=== PATIENT | female | born 1930 | race Caucasian/White ===

== ENCOUNTER 2020-04-05 08:50 | Inpatient (IN) | payer OTHER ==
[~2020-04-05] VITALS: Ht 172.7 cm; Wt 73.9 kg
[2020-04-05 08:50] VITALS: BP 172/84
[~2020-04-05 08:50] MED LIST: ARTIFICIAL TEA1 EACH OPHTHALMIC; ASPIR 8181 M1 PO; ASPIRIN81 M2 PO; ATENOLOL 100MG100 MG PO; AUGMENTIN 875875 MG PO; CELEXA20 MG PO; DILTIAZEM 24HR120 M2 PO; ENOXAPARIN40 MG/0.1 SUBQ; FLAGYL500 MG PO; HYDROCODONE-AP1 EAC6 PO; IBUPROFEN 400400 M2 PO; KEFLEX500 MG PO; LASIX 40 MG TAB40 MG PO; LEVOTHYROXIN0.088 MG PO; LEVOTHYROXIN0.125 M1 PO; LOPRESSOR 50 MG50 M1 PO; MAG-OXIDE400 MG PO; MAGOX 400400 MG PO; NORCO 5-325 TA1 EACH PO; POTASSIUM20 PO; TEARS NATURALE1 EACH OPHTHALMIC; TENORMIN50 MG PO
[2020-04-05 10:49] LABS: HEMATOCRIT 37.9 % (37.0-47.0); HEMOGLOBIN 12.3 gm/dL (12.0-15.0); MCH 32.6 pg (26.0-34.0); MCHC 32.5 g/dL (28.0-37.0); MCV 100.5 fL (80.0-100.0); RBC 3.77 mil/uL (4.20-5.00); RDW 14.1 % (10.5-14.5); WBC 11.5 thou/uL (4.0-11.0)
[2020-04-05 11:03] LABS: CALCIUM 9.3 mg/dL (8.5-10.1); CREATININE 0.7 mg/dL (0.6-1.0); POTASSIUM 3.6 mmol/L (3.5-5.1)
--- NOTE | 2020-04-05 11:39 | EKG ---
[facility] [place] [address] ELECTROCARDIOGRAM REPORT Name: SHE DENT Room #: REG [facility]#: [id number] Admission: 04/05/20 Attend Phys: Discharge: Date of : [birth year] Report #: [id number] THIS REPORT FOR: cc: J Carlos Jones MD, Mark A. 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
[2020-04-05 15:15] VITALS: BP 159/74
[2020-04-05 16:08] VITALS: BP 146/63
[2020-04-05 17:00] VITALS: BP 144/62
--- NOTE | 2020-04-05 19:18 | NUR ---
Pt came to unit from ED. Pt c/o left hip pain. Provider notified. New order noted. Sevilla catheter in place. Admission completed. Hospitalist paged. Ortho consulted. Colostomy bag in place. Call light within reach. Fall precautions in place. Will continue to monitor.
[2020-04-05 20:10] VITALS: BP 132/72
[2020-04-06] VITALS (12 sets, daily range): BP systolic 140–172; BP diastolic 54–89
--- NOTE | 2020-04-06 04:41 | NUR ---
PATIENT ALERT AND ORIENTED X4. MEDICATED FOR PAIN X3. REMAINS ON BEDREST. JAVIER TO D/D WITH BRENDEN URINE. PATIENT HAS BEEN NPO SINCE 04/05/20 AT 2359 FOR SURGERY IN THE AM. COVID TEST SENT TO LAB DURING THE AM. THIS NURSE PUT ORDER IN PER MILL LABOR SUPERVISOR (ABIGAIL). 02 SAT AT BEGINNING OF SHIFT 89%, PUT ON 2LNC WITH GOOD RESULTS. RESTING QUIETLY. WILL MONITOR.
--- NOTE | 2020-04-06 10:30 | NUR ---
discussed during prime time, possible will be going to surgery for fx, pt wish to go to 5n. education with bedside nurse that will need pt/ot eval and 5n consult ordered.
[2020-04-06 11:09] LABS: TSH 2.298 uIU/mL (0.358-3.740)
--- NOTE | 2020-04-06 12:29 | NUR ---
Assumed care of pt at 0700. Pt c/o left hip pain. Surgery scheduled for this am. Sevilla catheter in place. Talked to pt's brother and updated on pt's status.
[2020-04-06 12:46] LABS: HEMATOCRIT 36.3 % (37.0-47.0); HEMOGLOBIN 11.8 gm/dL (12.0-15.0); MCH 33.2 pg (26.0-34.0); MCHC 32.6 g/dL (28.0-37.0); MCV 101.9 fL (80.0-100.0); RBC 3.56 mil/uL (4.20-5.00); RDW 14.4 % (10.5-14.5); WBC 11.1 thou/uL (4.0-11.0)
[2020-04-07 00:31] VITALS: BP 136/46
--- NOTE | 2020-04-07 02:39 | NUR ---
PATIENT ALERT AND ORIENTED X4. MEDICATED FOR LEFT HIP PAIN DUE TO SURGERY. IVF INFUSING W/O COMPLICATION WELL IV ABX. DRESSING TO HIP IS DRY AND INTACT. HEMOVAC DRAIN IS MONITORED. WILL BEGIN WORK WITH PT TODAY. RESTING QUIETLY. WILL MONITOR.
[2020-04-07 06:34] LABS: HEMATOCRIT 29.8 % (37.0-47.0); MCH 34.1 pg (26.0-34.0); MCHC 33.6 g/dL (28.0-37.0); MCV 101.5 fL (80.0-100.0); RBC 2.94 mil/uL (4.20-5.00); RDW 14.1 % (10.5-14.5); WBC 8.6 thou/uL (4.0-11.0)
[2020-04-07 07:20] VITALS: BP 132/59
--- NOTE | 2020-04-07 11:19 | NUR ---
Assumed care of pt at 0700. Pt alert but forgetful at times. Dressing intact. Colostomy in place. Hemovac drain in place. Pain controlled with prn pain meds. 3L O2. Talked to pt's brother and updated on pt's status. Call light within reach. Fall precautions in place. Will continue to monitor.
[2020-04-07 15:40] VITALS: BP 121/66
[2020-04-07 19:55] VITALS: BP 126/70
[2020-04-07 20:30] VITALS: BP 140/68
[2020-04-08 03:10] VITALS: BP 114/75
--- NOTE | 2020-04-08 05:00 | NUR ---
PATIENT ALERT AND ORIENTED X4. RESTING QUIETLY AT BEGINNING OF SHIFT. PATIENT HAS REFUSED PAIN MEDICATION THROUGHOUT THE NIGHT. JAVIER TO D/D WITH BRENDEN URINE. 02NC 2-3L. DRESSING DRY AND INTACT. WILL MONITOR.
[2020-04-08 06:07] LABS: HEMATOCRIT 27.6 % (37.0-47.0); HEMOGLOBIN 9.3 gm/dL (12.0-15.0); MCH 33.9 pg (26.0-34.0); MCHC 33.7 g/dL (28.0-37.0); MCV 100.7 fL (80.0-100.0); RBC 2.74 mil/uL (4.20-5.00); RDW 13.9 % (10.5-14.5); WBC 7.6 thou/uL (4.0-11.0)
--- NOTE | 2020-04-08 06:32 | HC ---
[facility] [place] [address] CONSULTATION Name: SHE DENT Room #: 434-P ADM IN M.R.#: [id number] Admission: 04/05/20 Attend Phys: Sid Contreras, Discharge: Date of : [birth year] Report #: [id number] THIS REPORT FOR: cc: J Carlos Jones MD, Mark A. MD Deardorff, Valerie A. MD ~ CC: Sid Jones DATE OF SERVICE: 04/05/2020 REASON FOR CONSULTATION: Left hip fracture. HISTORY OF PRESENT ILLNESS: The patient is an 89-year-old female who lives at home [place]. She reports she fell. Denied loss of consciousness, was brought in via EMS and diagnosed with a left hip fracture. She was subsequently admitted to the hospital. Denies any other musculoskeletal complaints. REVIEW OF SYSTEMS: MUSCULOSKELETAL: See HPI. NEUROLOGIC: Denies numbness or tingling. PAST MEDICAL HISTORY: Significant for atrial fibrillation, cardiomyopathy, hemicolectomy with colostomy with postoperative respiratory failure, and hypothyroidism. PAST SURGICAL HISTORY: Hysterectomy and colon resection. ALLERGIES: CEPHALEXIN. SOCIAL HISTORY: Uses a cane when she is out and about. Otherwise, she lives on a farm with her brother. Alcohol and smoking status is unknown. LABORATORY DATA: Laboratory studies done on 04/05/2020 show white blood cell count 11.5, hemoglobin 12.3, hematocrit 37.9, and platelet count 148. Chemistry is grossly normal. PHYSICAL EXAMINATION: GENERAL: The patient is alert, oriented, and intractable. She is well-developed, well-nourished female with normal affect. She interacts appropriately, speaks well. VITAL SIGNS: Most recent vital signs show a temperature of 36.6, heart rate 94, respiratory rate 18, blood pressure 144/62, and pulse oximetry 97% on room air. EXTREMITIES: Examination of her bilateral upper extremities, the skin is clean, dry and intact. She has grossly normal motor strength and stability and [facility] [address] [place] [address] CONSULTATION Name: JAILENESHE CESAR Room #: [address] [place] [address] IN M.R.#: [id number] Admission: 04/05/20 Attend Phys: Sid Contreras, Discharge: Date of : [birth year] Report #: [id number] sensation. She moves both upper extremities without pain in a functional range. There is no tenderness to palpation throughout the bilateral upper extremities. Bilateral lower extremity exam, her left hip is externally rotated and somewhat shortened. She has 2+ dorsalis pedis pulses in for both lower extremities. The skin is clean, dry and intact. She wiggles her toes. No tenderness to palpation to the bilateral knees, legs, ankles, or feet. Significant pain with attempted range of motion of left hip, none with the right. RADIOGRAPHS: AP pelvis and AP lateral of the left hip show some mild degenerative changes and a displaced subcapital femoral neck fracture. IMPRESSION AND PLAN: Left subcapital femoral neck fracture in an 89-year-old female who recommended operative fixation. We discussed hemiarthroplasty. The risks, benefits, alternatives and complications were discussed including but not limited to decrease in ambulatory level, blood clots, infection, damage to vessels or nerves, hardware problems, dislocation, leg length inequality. She will discuss with her brother hopefully plan to perform surgery tomorrow morning if she is medically optimized. Thank you very much for allowing me to participate in the care of this patient. <ELECTRONICALLY SIGNED> By: Alisa Danielson MD 04/08/20 0632 09 2229 Alisa Danielson MD /nt
--- NOTE | 2020-04-08 07:20 | O ---
[facility] [place] [address] OPERATIVE REPORT Name: SHE DENT Room #: 434-P ADM IN M.R.#: [id number] Admission: 04/05/20 Attend Phys: Sid Contreras, Discharge: Date of : [birth year] Report #: [id number] THIS REPORT FOR: cc: J Carlos Jones MD, Mark A. MD Clymer, David J. MD ~ CC: Sid Jones DATE OF SERVICE: 04/06/2020 PREOPERATIVE DIAGNOSIS: Left femoral neck fracture. POSTOPERATIVE DIAGNOSIS: Left femoral neck fracture. PROCEDURE: Left proximal femoral hemiarthroplasty. SURGEON: Jacob Vee M.D. LANDSCAPE TECHNICIAN SURGEON: Dr. Danielson. INDICATIONS: This frail, but still alert 89-year-old female, lives independently with her . She fell injuring the left hip. X-rays confirmed a displaced and unstable femoral neck fracture. I have discussed with them the nature of the injury and treatment options and we elected to go ahead with a cemented proximal femoral hemiarthroplasty. DESCRIPTION OF PROCEDURE: The patient was taken to the operating room where she was placed under general anesthesia. Prophylactic intravenous antibiotics were administered. She was turned to the right lateral decubitus position. The left hip, thigh and leg were meticulously prepped and draped. A slightly curving posterior skin incision was made and carried through the fascia and the posterior aspect of the hip was visualized. The short external rotators were taken down and preserved and tagged. The femoral head was found to be fractured and unstable and was removed. It was measured at 47 mm in diameter. Femoral neck osteotomy was performed. The canal was prepared with reamers and broaches. The Browning and Nephew hip system was utilized. A cemented size 14 stem seemed to fit most appropriately. A trial reduction was performed and a 4 mm neck length using a 47 mm head size seemed to fit quite nicely. This resulted in satisfactory alignment, range of motion and stability. The trial components were removed. The acetabulum was further inspected and cleared of any debris. A cement restrictor was placed and the methyl methacrylate cement was mixed and injected into the canal. A Browning and Nephew size 14 cemented femoral component was then inserted, placing this in about 20 degrees of anteversion. It seated nicely and appeared to be secure. The 47 mm unipolar femoral head was selected using a +4 mm neck length. This was impacted onto the Vincent taper of the stem [address] [address] OPERATIVE REPORT Name: SHE DENT Room #: 434-P [facility] IN .R.#: [id number] Admission: 04/05/20 Attend Phys: Sid Contreras, Discharge: Date of : [birth year] Report #: [id number] and then the hip was reduced. Once again, alignment, range of motion, stability and leg length were assessed and felt to be satisfactory. The short external rotators were reattached using the #1 FiberWire sutures previously placed. A single Hemovac was left in the wound exiting through a separate stab incision. The fascia was closed with multiple #1 Vicryl sutures. The subcutaneous tissues were closed with 0 Monocryl. The skin was closed with skin danilo. A sterile dressing was applied. The patient was awakened and returned to the recovery room in good condition. <ELECTRONICALLY SIGNED> By: Jacob Vee MD 04/08/20 0720 1211 1232 Jacob Vee MD /nt
--- NOTE | 2020-04-08 09:28 | NUR ---
ASSESSMENT: CM REVIEWED CHART AND SPOKE WITH PATIENT. PT IS POST OP LEFT HIP HEMIARTHROPLASTY. PT REPORTS LIVING AT HOME WITH HER BROTHER IN A HOUSE. PT STATES ABOUT 5 STEPS WITH HANDRAIL TO ENTER. PT REPORTS ABOUT 12 STEPS WITH HANDRAILS TO HER BEDROOM. PT REPORTS NORMALLY SHE IS INDEPENDENT WITH ADLS AND AMBULATION. PT REPORTS SHE DOES HAVE A WALKER AT HOME. PT STATES SHE ALSO HAS GRAB BARS IN THE SHOWER AND A SHOWER CHAIR. PT STATES SHE HAS HAD HH IN THE PAST AND THINKS IT WAS [facility]. PT REPORTS SHE HAS NOT BEEN TO A SNF. PT/OT IS WORKING WITH PATIENT TO HER DETERMINE DISCHARGE NEEDS. CM WILL CONTINUE TO FOLLOW TO ASSIST NEEDED.
[2020-04-08 11:03] VITALS: BP 138/66
--- NOTE | 2020-04-08 15:05 | NUR ---
ASSUMED PT AT 0715. PT IS A&OX4, VSS, INCONTINENT TO BOWEL AND BLADDER. PT HAS A JAVIER CATHETERM WITH BRENDEN COLOR URINE, AND A COLOSTOMY BAG. PT IS ON A REGULAR DIET. PT HAD A LEFT HIP REPLACEMENT, PT WORKED WITH THE PATIENT TODAY. PT HAS A LASHANDA DRESSING WITH NO DRAINAGE. FALL PRECAUTIONS IN PLACE, WILL CONTINUE TO MONITOR.
[2020-04-08 19:08] VITALS: BP 138/67
--- NOTE | 2020-04-08 20:44 | NUR ---
I AMENDED NURSING ASSESSMENT WITH ERI/ELISEO AND I AGREE WITH NURSING NOTE.
--- NOTE | 2020-04-09 02:56 | NUR ---
PT CARE ASSUMED WITH PT IN BED AT 1900 WITH PATIENT WATCHING TV.PT IS A/O X4.PT IS ON BEDREST.PT HAS A LASHANDA DRESSING AND PT IS ON 2L OF O2.PT C/O PAIN AND PAIN MANAGED WITH MORPHINE.PT HAS A COLOSTOMY ON LLQ AND A JAVIER.PT APPEAR TO BE IN NO ACUTE DISTRESS.WILL CONTINUE TO MONITOR PER POC
[2020-04-09 05:16] VITALS: BP 134/72
[2020-04-09 10:15] VITALS: BP 115/66
--- NOTE | 2020-04-09 12:15 | NUR ---
PT CARE ASSUMED AT 0700. A&Ox4. COLOSTOMY BAG IN PLACE DRAINING WELL. PT PAIN NOT CONTROLLED WELL WITH IV PAIN MEDICATION. MD WILL ADD PO PAIN MEDICATION TO AUG. LASHANDA DRESSING/[facility] IN PLACE. IV PATENT WITH NO REDNESS OR EDEMA. SALINE LOCKED. 2 LITERS. PT/OT ON BOARD. FALL PROTOCOL IN PLACE. CALL LIGHT IN REACH. WILL CONTINUE TO MONITOR.
--- NOTE | 2020-04-09 14:52 | NUR ---
ON-GOING ASSESSMENT: CM REVIEWED CHART AND SPOKE WITH PATIENT WELL [facility]. PT IS FROM HOME WHERE SHE LIVES WITH HER BROTHER AND PLANS ARE FOR PATIENT TO DISCHARGE TODAY TO [facility]. [facility] STATING THEY CAN ACCEPT PATIENT TO REHAB TODAY. CM NOTIFIED BEDSIDE RN AND DR. BURGER. PT REPORTS SHE WILL CONTACT HER BROTHER TO NOTIFY HIM. PT REPORTS NO FURTHER NEEDS FROM CM. CASE CLOSED.
[2020-04-10] MEDS ORDERED: LATANOPROST 0.2.5 ML OPHTHALMIC (11:18)
[2020-04-10] MEDS ORDERED: NEURONTIN 300M300 M2 PO (11:19)
[2020-04-10] MEDS ORDERED: BETIMOL5 ML (11:19)
== END 2020-04-09 16:16 | DRG 521 ==
LOC: ER 08:50 → EROBS 11:43 → 4S 11:43
PROVIDERS: Emergency Medicine; Hospitalist; Orthopaedic Surgery; ADMIT Surgery; ATTEND Surgery
PROC: 0SRS019 Replacement of Left Hip Joint, Femoral Surface with Metal Synthetic Substitute, Cemented, Open Approach (ICD-10-PCS; principal; 2020-04-06)
DX: S72.012A Unspecified intracapsular fracture of left femur, initial encounter for closed fracture (principal); J96.90 Respiratory failure, unspecified, unspecified whether with hypoxia or hypercapnia; I48.21 Permanent atrial fibrillation; I42.9 Cardiomyopathy, unspecified; D75.89 Other specified diseases of blood and blood-forming organs; Z20.828 Contact with and (suspected) exposure to other viral communicable diseases; E03.9 Hypothyroidism, unspecified; W01.0XXA Fall on same level from slipping, tripping and stumbling without subsequent striking against object, initial encounter; F03.90 Unspecified dementia, unspecified severity, without behavioral disturbance, psychotic disturbance, mood disturbance, and anxiety; Z90.710 Acquired absence of both cervix and uterus; Z98.42 Cataract extraction status, left eye; Z98.41 Cataract extraction status, right eye; Z93.3 Colostomy status; Z88.8 Allergy status to other drugs, medicaments and biological substances; Y93.89 Activity, other specified; Y92.098 Other place in other non-institutional residence as the place of occurrence of the external cause; Y99.8 Other external cause status; Z79.899 Other long term (current) drug therapy
CPT/HCPCS: 10195; 50010; 50101; 50382; 50414; 51057; 51130; 51225; 51412; 53000; 56521; 56525; 56530; 57103; 57165; 62110; 62900; 70005

== ENCOUNTER 2020-04-09 15:08 | Inpatient (IN) | payer OTHER ==
[~2020-04-09] VITALS: Ht 172.7 cm; Wt 71.5 kg
[2020-04-09 17:24] VITALS: BP 153/69
--- NOTE | 2020-04-09 18:56 | NUR ---
Alert and orientated X 4. Conversive. Calm and cooperative. Breath sounds clear with good aeration on 2 L FIO2 per NC. Reg, spontaneous resp without nasal flaring or retractions. Irregular HR auscultated. Color pale pink with brisk capillary refill and palpable peripheral pulses. Clear yellow urine per carmona. Green stool per colostomy with bag intact. Active bowel sounds over soft, rounded abdomen. Incision intact per hip with sae attached.
[2020-04-09 19:25] VITALS: BP 135/85
--- NOTE | 2020-04-10 05:18 | NUR ---
ASSUMED PT CARE AROUND 1930. VSS. JAVIER, COLOSTOMY INTACT. L HIP DRESSING WITH DRIED BLOOD BUT NO ACTIVE OR RED BLOOD NOTED ON DRESSING. NO S/S ACUTE DISTRESS NOTED OR REPORTED AT THIS TIME. WILL CONT TO MONITOR FOR ANY CHANGES IN CONDITION.
[2020-04-10 06:01] LABS: HEMATOCRIT 27.1 % (37.0-47.0); HEMOGLOBIN 9.1 gm/dL (12.0-15.0); MCH 33.6 pg (26.0-34.0); MCHC 33.4 g/dL (28.0-37.0); MCV 100.6 fL (80.0-100.0); RBC 2.69 mil/uL (4.20-5.00); RDW 13.8 % (10.5-14.5); WBC 5.3 thou/uL (4.0-11.0)
[2020-04-10 06:05] LABS: CALCIUM 8.8 mg/dL (8.5-10.1); CREATININE 0.8 mg/dL (0.6-1.0); POTASSIUM 4.1 mmol/L (3.5-5.1)
--- NOTE | 2020-04-10 10:05 | NUR ---
chart review. cm visited with pt at bedside, cm cont to wear face mask and shield during visit. she is able to make her needs known. she lives with her brother, he is so helpful, no home o2, has walker, grab bar, shower chair. [facility] in past. 12 steps inside house[address] pcp dr limon. will cont following as needed for dc need.
[2020-04-10 10:09] VITALS: BP 136/78
[2020-04-10] MEDS ORDERED: LATANOPROST 0.2.5 ML OPHTHALMIC (11:18)
[2020-04-10] MEDS ORDERED: BETIMOL5 ML (11:19)
[2020-04-10] MEDS ORDERED: NEURONTIN 300M300 M2 PO (11:19)
--- NOTE | 2020-04-10 14:03 | NUR ---
PATIENT WAS IN BED ASLEEP WHEN CARE ASSUMED AT 0700AM. PATIENT IS ALERT, AND ORIENTED X 3-4, ABLE TO VOICE NEED. GOT IN REPORT THAT PATIENT WANTS TO BE DNR, WELDING MACHINE OPERATOR RESISTANCE-(ROSY) NOTIFIED. PATIENT TOOK ALL MORNING MEDICATIONS WHOLE WITHOUT DIFFICULTY, EXCEPT MIRALAX, "I DON'T WANT IT, THIS DRAINS ON IT'S OWN" REFERING TO HER COLOSTOMY BAG. COLOSTOMY BAG INTACT, BROWN SOFT STOOL NOTED. PATIENT IS EATING MEALS, AND DRINKING FLUID FAIRLY WELL. LUNGS CLEAR TO AUSCULTATION IN ALL LOBE. BS+X4, ABD SOFT, NON-TENDER TO TOUCH. IV LINE TO LEFT ARM REMOVED PER WELDING MACHINE OPERATOR RESISTANCE'S ORDER. PATIENT STATES PAIN MEDICATION "HYDROCODONE IS NOT WAITING". WELDING MACHINE OPERATOR RESISTANCE (ROSY) NOTIFIED, SHE ORDERED ALTRAM, ALTRAM GIVEN WITH POSITIVE EFFECT, PAIN DECREASED FROM 8/10 TO 4/10. ULTRAM DISCONTINUED, PATIENT IS NOW ON PRN OXY IR 5MG NO SIGN OF ACUTE DISTRESS NOTED AT THIS TIME, CALL LIGHT IN REACH, WILL CONTINUE TO MONITOR.
--- NOTE | 2020-04-10 14:52 | NUR ---
Nutrition: pt admitted with left femoral neck fracture S/P hemiarthroplasty, now admitted to rehab unit. Received consult related to needing assistance with food. Pt has dentures but they are at home. Discussed diet consistency options and agree mechanical soft is best-will order. RD educated pt on alternative menu and assisted with ordering dinner tonight. Ensure has already been ordered BID-pt drinks and will continue. Good appetite reported. Noted only 10-40% of meals past 2 days however likely due to post surgery and difficulty with regular diet. No recent significant weight changes pt is aware of. Will follow trends for accuracy. Consider low risk with interventions in place.
[2020-04-10 19:49] VITALS: BP 145/65
--- NOTE | 2020-04-11 02:50 | NUR ---
ASSESSMENT: PT REMAIN ALERT AND ORIENT TIMES FOUR. UP TO BSC WITH MAX ASSIST, GB AND WALKER. PT WISHES TO BE DNR, CURRENTLY IS STILL A FULL CODE. COLOSTOMY INTACT WITH SMALL AMTS OF SEMI-LIQUID BROWN STOOL. CONCEPCION WAS DC'D EARLIER ON DAY SHIFT. PILLOW BETWEEN LEGS. PECCO DRESSING INTACT. SLOW PROGRESS TOWARDS DC GOALS. WILL CONTINUE TO MONITOR.
[2020-04-11 08:00] VITALS: BP 155/70
--- NOTE | 2020-04-11 17:28 | NUR ---
ASSUMED CARE OF PT AT 0700. PT IS A&OX4 AND VITAL SIGNS ARE STABLE. PT REPORTS PAIN TO LEFT HIP, MANGED WITH PO MEDICATIONS. LIDOCAIN PATCH ORDERD AND PLACED THIS AM AND PT REMOVED WITHIN 15 MINUTES STATING THAT IS CAUSED SHOOTING PAIN UP HER LEG, SAFETY INSTRUCTOR NOTIFIED. LASHANDA DRESSING TO LEFT HIP C/D/I. COLOSTOMY NOTED ON ASSESSMENT AND PT ASSISTED WITH CHANGING APPLIANCE THIS SHIFT. ORDERS FOR UA, NO SAMPLE OBTAINED AT THIS TIME. FALL PRECAUTIONS IN PLACE AND NURSING WILL CONTINUE TO MONITOR.
[2020-04-11 19:35] VITALS: BP 123/62
--- NOTE | 2020-04-12 02:17 | NUR ---
ASSUMED PT CARE AROUND 1930. VSS. EXTERNAL FEMALE URINARY CATHTER PLACED PER PHYSICAN ORDER NOC. COLOSTOMY CARE COMPLETED. PT INDEPENDENT CHANGING COLOSTOMY. RN SUPERVISION ONLY PER FIRST TIME CHANGING AND SUPPLY NOT FAMILIAR TO PT. PT DID NOT LIKE HOSPITAL PROVIDED SUPPLY AND PT'S BROTHER WILL BRING HOME SUPPLY IN AM. NO S/S ACUTE DISTRESS NOTED OR REPORTED AT THIS TIME. WILL CONT TO MONITOR FOR ANY CHANGES IN CONDITION.
[2020-04-12 05:04] LABS: URINE BILIRUBIN NEGATIVE (Negative); URINE BLOOD NEGATIVE (Negative); URINE CLARITY SL CLOUDY; URINE COLOR YELLOW; URINE GLUCOSE-RANDOM* NEGATIVE (Negative); URINE KETONES NEGATIVE (Negative); URINE NITRITE-REFLEX NEGATIVE (Negative); URINE PROTEIN (DIPSTICK) NEGATIVE (Negative); URINE UROBILINOGEN 0.2 E.U./dl (0.2-1.0)
[2020-04-12 05:12] LABS: URINE LEUKOCYTES-REFLEX 3+ (Negative)
[2020-04-12 06:11] LABS: CASTS None Seen /LPF (None Seen); SQUAMOUS >10 Many /LPF (0-3)
[2020-04-12 06:12] LABS: BACTERIA-REFLEX >30 Many /HPF (None Seen); CRYSTALS None Seen /LPF (None Seen); URINE RBC None Seen /HPF (0-2); URINE WBC-REFLEX 6-15 Few /HPF (0-5)
[2020-04-12 08:00] VITALS: BP 125/57
[2020-04-12 08:32] VITALS: BP 125/57
--- NOTE | 2020-04-12 15:00 | NUR ---
ASSUMED CARE AT 0700. PT COMPLAINED OF PAIN IN HER LEFT HIP RADIATING TO HER GROIN AREA AND NO RELIEF WITH OXYCODONE OR HYDROCODONE. SHE WAS UP MOST OF THE NIGHT AND WAS NOT HAPPY WITH HER OSTOMY BAG SHE PREFERS HER OWN WHICH ONLY NEEDS TO STRAP ON AND OFF AND DISCARD. BROTHER WAS COMING IN EITHER TODAY OR TOMORROW TO BRING HER OWN SUPPLIES. PT ALSO IS POSITIVE WITH UTI AND STARTED HER ON CIPROFLOXACIN. SHE WAS STARTED ON ROBAXIN AND HER GABAPENTIN WAS INCREASED TO BID. AT 1130, THERAPY CALLED TO INFORM PT WAS LETHARGIC AND SLIGHTLY UNRESPONSIVE. UPON ARRIVAL, NOTED PT WAS SITTED ON THE CHAIR WITH HER HEAD SLUMPED DOWN. PT WOKEN UP WITH MIN RESPONSE. SHE WAS MOANING WITH INCOMPREHENSIBLE SOUNDS. PT WAS COLD AND CLAMMY. IMMEDIATELY PLACED PT ON THE BED, VS WAS STABLE WITH NO HYPOTENSION. BG 167. PT IS ABLE TO RESPONSE AND FOLLOW COMMANDS. SPEECH WAS CLEARER AND ABLE TO SQUEEZE HANDS EQUALLY BILATERALLY. PUPILS EQUAL AND REACTIVE. ROSY PUZZLE ASSEMBLER NOTIFIED AND WAS IN THE ROOM TO ASSESS PT. PT WAS REASSESS AND WAS ABLE TO WORK WITH PT AFTER PAIN MEDS GIVEN. PT ENCOURAGE TO INCREASE ORAL INTAKE AND SUSPECTED PT IS DEHYDRATED AND CAUSE HER TO BE DIZZY EARLIER. CONT TO MONITOR AND ENCOURAGE FLUID INTAKE.
[2020-04-12 20:44] VITALS: BP 123/63
--- NOTE | 2020-04-13 00:42 | NUR ---
PT ALERT AND ORIENTED X 4. LEFT HIP LASHANDA DRESSING INTACT WITH DRIED BLOODY DRAINAGE. PT C/O PAIN IN LLE. OXYCODONE GIVEN AT HS. COLOSTOMY INTACT WITH LIQUID BROWN STOOL. PT INCONT OF URINE IN LARGE AMTS. BED ALARM ON FOR SAFETY. PT APPEARS TO BE SLEEPING ON HOURLY ROUNDS.
[2020-04-13 08:00] VITALS: BP 119/41
--- NOTE | 2020-04-13 13:39 | NUR ---
ASSUMED CARE AT 0700 THIS MORNING PT. AAOX4. PT. AT BREAKFAST WITHOUT PROBLEMS. SHE HAS BEEN SOMEWHAT IRRITABLE. SHE WAS WALKED BY THERAPY. PT. STATED SHE FELT A BIT DIZZY THERAPY ENDED. SHE WAS RETURNED TO BED. SHE DENIED FEELING DIZZY AFTER RETURNING TO BED. ALL MEDS GIVEN ORDERED. HER LUNGS WERE CTA, HR IRREG., ABD. SOFT.
[2020-04-13 19:24] VITALS: BP 139/76
--- NOTE | 2020-04-14 01:22 | NUR ---
PT ALERT AND ORIENTED X 4. UP TO BSC WITH ASSIST X 1. LASHANDA DRESSING INTACT TO LEFT HIP WITH DRIED BLOODY DRAINAGE. COLOSTOMY INTACT WITH LIQUID BROWN STOOL. PT C/O PAIN IN LEFT HIP. OXYCODONE AND ROBAXIN GIVEN WITHOUT RELIEF OF PAIN. SLADE SAHU NP NOTIFIED WITH ORDER RECEIVED FOR HYDROCODONE. MED GIVEN ORDERED. BED ALARM ON FOR SAFETY. PT CHECKED ON HOURLY ROUNDS.
[2020-04-14 13:02] VITALS: BP 122/72
--- NOTE | 2020-04-14 14:15 | NUR ---
ASSUMED CARES AT 0700. PT AWAKE, ALERT AND ORIENTED *4 BUT FORGETFUL. C/O PAIN IN LEFT HIP AND STATED THAT THE CURRENT PAIN MEDICATION REGIMEN ISN'T WORKING. PAIN MEDICATION ADMINISTERED NEEDED. VITALS REMAIN STABLE. COLOSTOMY REMAINS INTACT AND PATENT. LEFT HIP LASHANDA DRESSING REMAINS INTACT, BATTERY EMPTY AND NOT SUCTIONING. ENCOURAGING FLUID INTAKE TOLERATED. PT UP WITH 1 MIN ASSIST TO BEDSIDE COMMODE, GB AND WALKER AND TOLERATED WELL. Q1H VISUAL CHECKS. CALL LIGHT WITHIN REACH. FALL PRECAUTIONS IN PLACE
[2020-04-14 19:25] VITALS: BP 132/46
--- NOTE | 2020-04-15 04:00 | NUR ---
ASSUMED CARE OF PT AT 1915 ON 04/14/20. PT IS A&OX4. IS [place]. IS UP STABLE. IS UP WITH 1 ASSIST, GB, WALKER TO BSC. FALL PRECAUTIONS & HOURLY ROUNDING CONTINUED THIS SHIFT. LASHANDA DRSG TO LEFT HIP INTACT WITH MODERATE AMOUNT OF DRAINAGE. HIP PRECAUTIONS MAINTAINED. REPORTED PAIN THAT IS BEING MANAGED WITH PAIN MEDS & OTHER THEAPUETIC TECHNIQUES. HAS COLOSTOMY INTACT. PT IS SELF MAINTAINING. IS ON ROOM AIR. LABS & VITALS REVIEWED. PT IS CONTINENT. HAS URINARY FREQUENCY. IS CURRENTLY SLEEPING CALL LIGHT WITHIN REACH. WILL CONTINUE TO MONITOR.
[2020-04-15 07:09] LABS: ABSOLUTE NEUTROPHILS 4.6 thou/uL (1.4-8.2); BASOPHILS 1.2 % (0.0-2.0); EOSINOPHILS 7.2 % (0.0-3.0); HEMATOCRIT 28.7 % (37.0-47.0); HEMOGLOBIN 9.3 gm/dL (12.0-15.0); LYMPHOCYTES 17.6 % (24.0-44.0); MCH 33.2 pg (26.0-34.0); MCHC 32.5 g/dL (28.0-37.0); MCV 102.2 fL (80.0-100.0); MONOCYTES 9.2 % (1.0-8.0); PLATELET COUNT 232 thou/uL (150-400); POLYS 64.8 % (36.0-66.0); RBC 2.81 mil/uL (4.20-5.00); RDW 14.4 % (10.5-14.5); WBC 7.1 thou/uL (4.0-11.0)
[2020-04-15 07:55] LABS: CREATININE 0.8 mg/dL (0.6-1.0); MAGNESIUM 1.7 mg/dL (1.8-2.4); POTASSIUM 4.4 mmol/L (3.5-5.1)
[2020-04-15 08:00] VITALS: BP 147/65
--- NOTE | 2020-04-15 09:30 | NUR ---
ASSISTED PT TO BSC TO VOID, PT NEEDED ASSIST X1. PT DIDN'T APPEAR TO HAVE PAIN WITH TRANSFER. PT DRESSING D/I TO LEFT HIP. PT DIDN'T ASK FOR HER MEDICATION THIS AM INSTRUCTED.
--- NOTE | 2020-04-15 13:51 | NUR ---
ADM MAG OXIDE 800MG X1 PO.
--- NOTE | 2020-04-15 18:54 | NUR ---
PT HAD A GOOD DAY TODAY. PT STATED THE SCD'S HELP WITH HER PAIN TO LE. PT HAS NOT HAD ANY ORAL PAIN MED, TOLERATING ACTIVITY WITH ASSISTANCE.
[2020-04-15 19:46] VITALS: BP 127/65
--- NOTE | 2020-04-16 02:16 | NUR ---
PT ALERT AND ORIENTED X 4. LEFT HIP LASHANDA DRESSING INTACT WITH DRIED RED BLOODY DRAINAGE. COLOSTOMY INTACT WITH NO STOOL SO FAR TONIGHT. PT C/O PAIN IN HER LEFT HIP. TYLENOL GIVEN AT HS. PT DID NOT CALL FOR HS MEDS. BED ALARM ON FOR SAFETY. PT APPEARS TO BE SLEEPING ON HOURLY ROUNDS.
[2020-04-16 09:27] VITALS: BP 144/77
--- NOTE | 2020-04-16 12:09 | NUR ---
Alert and orientated. Conversive with frequent requests for position adjustments. States pain in L hip was 0 when she is still/10 when she is ambulating with PT. Oxycodone and tylenol given, states pain 7-8 with ambulation, 0 when still. Breath sounds clear t/o. Irregular HR auscultated. Color pale pink with brisk capillary refill and palpable peripheral pulses. Yellow urine per bedside commode, adequate amounts. Active bowel sounds over soft, rounded abdomen. Colonostomy per L abdomen, bag intact without stool, stoma pink with brisk capillary refill. States she emptied bag yesterday evening as she does every day. Drsg per L hip removed by PROGRAM PLANNER. [place] without s/o infection. Site cleaned with NS and redressed with ABD and paper tape per order. Participating in therapy most of the AM.
--- NOTE | 2020-04-16 14:13 | NUR ---
team meeting, reccommendation: weaned off o2, needs assist with medication and bills, she not calling out for her meds. on po abx for uti 7 days. cm to ask brother if he works or is home with her all the time. dc 27th with hh (pt, ot, st and nursing). no dme needs. st traning with brother and madyson on meds.
[2020-04-16 19:35] VITALS: BP 141/65
--- NOTE | 2020-04-17 04:45 | NUR ---
ASSUMED CARE APPROX 1900 EVENING 04/16. PT ALERT AND ORIENTED X4, APPROPRIATE AND COOPERATIVE. PT UP TO BSC TO VOID. PT EMPTIED HER OWN COLOSTOMY. PT TOOK HS MEDS WITH WATER TOLERATING WELL. PT APPEARS TO BE SLEEPING SOUNDLY WITH HOURLY ROUNDING CHECKS. BED ALARM ON AND CALL LIGHT IN REACH. [facility]
[2020-04-17 08:51] VITALS: BP 109/70
--- NOTE | 2020-04-17 13:35 | NUR ---
Nutrition followup: Pt eating variable amounts of meals averaging 67% past 11 meals documented. Variable intake of supplements recorded. Sending ensure BID and pt voices she drinks it whenever she gets it. Variable weights but most recent is right around UBW/admit weight reported. Had added mechanical soft to diet order on admit as pt did not have dentures with her. ST is following and would like to keep her on this diet for now due to pocketing although pt is voicing she can safely consume a regular diet. Discussed with ST. Keep as low nutrition risk with interventions in place.
--- NOTE | 2020-04-17 14:19 | NUR ---
ASSUMED CARES AT 0700. PT AWAKE, ALERT AND ORIENTED*4 BUT FORGETFUL. C/O PAIN LEFT HIP, PAIN MEDICATION AND MUSCLE RELAXERS ADMINISTERED NEEDED. VITALS REMAIN STABLE. LEFT HIP INCISION REMAINS DRY AND INTACT, MARIO ARE INTACT, DRESSING CHANGED. COLOSTOMY REMAINS INTACT AND PATENT, STOOL IS BROWN AND JELLY-LIKE. PT UP WITH 1 MIN - SBA, GB AND WALKER AND TOLERATED WELL. Q1H VISUAL CHECKS. CALL LIGHT WITHIN REACH. FALL PRECAUTIONS IN PLACE
--- NOTE | 2020-04-17 16:11 | NUR ---
FAXED REFERRAL TO [facility] WHICH IS [facility] SPOKE WITH ESTUARDO IN INTAKE AT [facility] SHE RECEIVED REFERRAL AND [place] ACCEPT [place]. THEY WILL START VISITS 04/27.
[2020-04-17 16:18] VITALS: BP 109/70
[2020-04-17 20:05] VITALS: BP 107/48
--- NOTE | 2020-04-17 21:58 | NUR ---
ASSUMED CARE OF PT AT 1900. PT IS A&OX4. IS ON ROOM. ENCOURAGED USE OF IS D/T AUSCULTATED WHEEZING IN URL. PT IS STABLE. DENIES PAIN IN LEFT HIP. GAETANO GONZALEZ C/D/I. HIP PRECAUTIONS CONTINUED THIS SHIFT. PT IS UP 1 ASSIST, GB, WALKER TO BSC. FALL PRECAUTIONS & HOURLY ROUNDING CONINTUED THIS SHIFT. LIDOCAINE PATCH REMOVED FROM KNEE. LABS & VITALS REVIEWED. PT IS CURRENTLY SLEEPING. CALL LIGHT WITHIN REACH. WILL CONTINUE TO MONITOR.
[2020-04-18 08:00] VITALS: BP 140/69
--- NOTE | 2020-04-18 11:13 | NUR ---
vendor choice form updated and on pt chart, [facility].
--- NOTE | 2020-04-18 14:24 | NUR ---
ASSUMED CARES AT 0700. PT AWAKE, ALERT AND ORIENTED*4. DENIES PAIN THIS AM. VITALS REMAIN STABLE. LEFT HIP INCISION REMAINS DRY AND INTACT, CHANGED THIS AM AFTER BATH. MARIO REMAIN INTACT. COLOSTOMY REMAINS INTACT AND PATENT, PATIENT CONTINUES TO PERFROM COLOSTOMY CARE AT BEDTIME. HIP PRECAUTIONS MAINTAINED. PT UP WITH 1 MIN ASSIST, GB AND WALKER AND TOLERATED WELL. Q1H VISUAL CHECKS. CALL LIGHT WITHIN REACH. FALL PRECAUTIONS IN PLACE
[2020-04-18 20:01] VITALS: BP 135/77
--- NOTE | 2020-04-19 03:50 | NUR ---
Assumed care of pt @ 1900. Pt calm ,cooperative, with pleasant demeanor this shift. Took medications whole without difficulty. VSWNL. Health assessment with no abnormalities noted this shift. Up to bedside commode several times throughout the shift. No BM this shift. AOX3. Currently resting in bed with eyes closed. Will continue to monitor per unit protocol.
[2020-04-19 06:49] LABS: HEMATOCRIT 28.6 % (37.0-47.0); HEMOGLOBIN 9.4 gm/dL (12.0-15.0); LYMPHOCYTES 23.7 % (24.0-44.0); MCH 33.6 pg (26.0-34.0); MCHC 32.7 g/dL (28.0-37.0); MCV 102.9 fL (80.0-100.0); MONOCYTES 7.5 % (1.0-8.0); PLATELET COUNT 247 thou/uL (150-400); POLYS 61.8 % (36.0-66.0); RBC 2.79 mil/uL (4.20-5.00); RDW 14.7 % (10.5-14.5); WBC 6.5 thou/uL (4.0-11.0)
[2020-04-19 07:09] LABS: CALCIUM 9.3 mg/dL (8.5-10.1); CREATININE 0.8 mg/dL (0.6-1.0); MAGNESIUM 1.9 mg/dL (1.8-2.4); POTASSIUM 4.5 mmol/L (3.5-5.1)
[2020-04-19 08:00] VITALS: BP 120/61
--- NOTE | 2020-04-19 13:49 | H ---
[facility] [place] [address] HISTORY AND PHYSICAL Name: SHE DENT Room #: 509-P ADM IN M.R.#: [id number] Admission: 04/09/20 Attend Phys: Jacob Reyna MD Discharge: Date of : [birth year] Report #: [id number] THIS REPORT FOR: cc: J Carlos Jones MD, Mark A. MD Smithson, David G. MD ~ CC: Jacob Jones DATE OF SERVICE: 04/09/2020 HISTORY OF PRESENT ILLNESS: The patient is an 89-year-old white female who was originally admitted to [facility] on 04/05/2020 after a fall with left hip pain. She was diagnosed with a left femoral neck fracture and underwent hemiarthroplasty on 04/06/2020 by Orthopedics. She is allowed weightbearing as tolerated. She has required 2 liters nasal cannula postoperatively and is noted to have some hypoxia/mild postoperative respiratory failure. She has atrial fibrillation with cardiomyopathy. She has a prior history of a bowel obstruction and has a chronic ostomy. She has been admitted now for acute in-hospital inpatient rehabilitation. PAST MEDICAL HISTORY: As noted above. She has the prior ostomy, which she has had for approximately 5 years. She was not on oxygen premorbidly. She does have permanent atrial fibrillation, cardiomyopathy, perforated distal colon, left hemicolectomy, 11/10/2019. She had an abdominal wound dehiscence, ventral hernia attempted repair with infection found. HABITS: No history of tobacco or alcohol abuse. ALLERGIES: CEPHALEXIN. SOCIAL HISTORY: The patient lives in a farm house with her brother, 5 steps in, could stay down stairs if needed. Brother is a retired EMT and could help her if needed. She used a single point cane on occasion. She does some limited driving. REVIEW OF SYSTEMS: No current complaints of chest pain, shortness of breath or abdominal discomfort. PHYSICAL EXAMINATION: GENERAL: An 89-year-old white female in no obvious distress. She is currently on 2 liters nasal cannula. HEENT: Facies are symmetric. CHEST: Some diffuse decreased breath sounds, otherwise sounded clear. CARDIOVASCULAR: Sounded regular rate and rhythm. ABDOMEN: Bowel sounds positive, nontender. She has the chronic ostomy. [facility] [address] [place] [address] HISTORY AND PHYSICAL Name: SHE DENT [place] Room #: 509-P [facility] IN .R.#: [id number] Admission: 04/09/20 Attend Phys: Jacob Reyna MD Discharge: Date of : [birth year] Report #: [id number] GENITOURINARY AND RECTAL: Deferred. EXTREMITIES: She has a functional range of motion of both upper extremities. Strength is grade 4-/5. Lower extremities, hip incision is dressed. There is no focal calf swelling. She can dorsiflex the left ankle. No obvious focal weakness of the right lower extremity. She favors moving that left lower extremity as expected. She has been max assist to come to stand and at this point has ambulated 3 feet in the parallel bars with mod assist prior to rehabilitation admission. ASSESSMENT: An 89-year-old white female with the following problem list: 1. Left femoral neck fracture, status post hemiarthroplasty 04/06/2020, weightbearing as tolerated. 2. Mild postoperative respiratory failure. 3. Atrial fibrillation. 4. Cardiomyopathy. 5. Hypothyroidism. 6. Prior small-bowel obstruction, underwent a colectomy and has a chronic ostomy. PLAN: The patient has been admitted for acute in-hospital inpatient rehabilitation. Goal is to maximize her functional independence, so she can hopefully return back to her prior living situation. She meets the rehab diagnostic criteria, meets the medical necessity criteria and we will have the clinical application consultant physicians continue to follow. She does have tolerance for an acute inpatient rehabilitation level of care and has appropriate discharge goals back to the home setting. She will be involved in the interdisciplinary acute inpatient rehabilitation program with the goal of returning back to the home setting. She was on IV pain meds prior to rehabilitation transfer. The patient has been started on tramadol p.r.n. as well as Tylenol p.r.n. and we will see how she does with that. <ELECTRONICALLY SIGNED> By: Jacob Reyna MD 04/19/20 1349 [id number] Jacob Reyna MD /nt
--- NOTE | 2020-04-19 13:49 | PLAN ---
[facility] [place] [address] REHAB UNIT PLAN OF CARE Name: SHE DENT Room #: 509-P ADM IN M.R.#: [id number] Admission: 04/09/20 Attend Phys: Jacob Reyna MD Discharge: Date of : [birth year] Report #: [id number] THIS REPORT FOR: //name// CC: Jacob Jones DATE OF SERVICE: 04/12/2020 ADDENDUM PROGRESS NOTE AND OVERALL PLAN OF CARE It is to dictation for [id number]. The patient's prognosis for significant practical improvement within a reasonable period of time appears good. Given the patient's complex medical condition and risk of further medical complications, rehabilitation services could not be safely provided at a lower level of care such as a fci facility. <ELECTRONICALLY SIGNED> By: Jacob Reyna MD 04/19/20 1349 [id number] Jacob Reyna MD /nt
--- NOTE | 2020-04-19 13:49 | PLAN ---
[facility] [place] [address] REHAB UNIT PLAN OF CARE Name: SHE DENT Room #: 509-P ADM IN M.R.#: [id number] Admission: 04/09/20 Attend Phys: Jacob Reyna MD Discharge: Date of : [birth year] Report #: [id number] THIS REPORT FOR: //name// CC: Jacob Jones DATE OF SERVICE: 04/12/2020 PROGRESS NOTE/OVERALL PLAN OF CARE SUBJECTIVE: The patient is seen back today in followup. She is in no distress. Temperature 36.8, pulse 72, respirations 18, blood pressure 125/57. Her left hip is dressed. She does not have pain with rest, but has more pain in the evenings. No focal calf swelling. She is working on functional mobility issues. Her tolerance tends to vary some for rehabilitation. She has stood in OT to work on some basic ADLs, initially requiring contact guard to min assist and then she can fatigue. Working in physical therapy. At her best, she has been able to get up and take a couple of steps with a front-wheeled walker with mod assist. She has also been at the parallel bars. Speech therapy is working with her and she is noted to have mild cognitive deficits with moderate memory deficits. She is on mechanical soft diet with thin liquids. ASSESSMENT: 1. Left femoral neck fracture, status post hemiarthroplasty 04/06/2020, weightbearing as tolerated. 2. Mild postoperative respiratory failure. 3. Pain management issues. She does have Robaxin p.r.n. Neurontin has been increased to b.i.d. She has p.r.n. oxycodone. She is being monitored for sedation. 4. Atrial fibrillation. 5. Cardiomyopathy. 6. Hypothyroidism. PLAN: The overall plan of care includes: 1. Estimated length of stay is probably at least 2-3 weeks pending progress. 2. Medical prognosis is reasonably good. 3. Anticipated interventions includes the interdisciplinary acute inpatient rehabilitation program. 4. Anticipated functional outcomes would be for the patient to hopefully improve as far as strength, mobility, ADLs, overall cognition, so that she can return back to the home setting. She needs to be up and moving, better with the walker. 5. Discharge destination would be back to the home setting where she lives with her brother in a farm house. 6. Expected therapy by discipline includes PT, OT and speech, 1 hour per day each five days a week throughout the duration [place] [address] REHAB UNIT PLAN OF CARE Name: SHE DENT [place] Room #: 509-P [facility] IN [facility]#: [id number] Admission: 04/09/20 Attend Phys: Jacob Reyna MD Discharge: Date of : [birth year] Report #: [id number] rehabilitation stay. We may be able to decrease her speech therapy and increase the PT and OT depending upon how she does. ADDENDUM The patient's prognosis for significant practical improvement within a reasonable period of time appears good. Given the patient's complex medical condition and risk of further medical complications, rehabilitation services could not be safely provided at a lower level of care such as a fci facility. <ELECTRONICALLY SIGNED> By: Jacob Reyna MD 04/19/20 1349 [id number] [id number] Jacob Reyna MD /[facility]
[2020-04-19 14:02] VITALS: BP 126/87
[2020-04-19 19:27] VITALS: BP 127/68
--- NOTE | 2020-04-19 19:40 | NUR ---
assumed care of pt at 0700. pt is a&ox4 and vital signs are stable. pt denies pain and participated in scheduled therapies. pt did not call for any medications this shift. pt doing all care for colostomy. pt calls appropriately for assistance, fall precautions in place and nursing will continue to monitor.
--- NOTE | 2020-04-20 02:54 | NUR ---
04-19-20 CARE TRANSFERRED 1900 PT AAOX3, VSS, RR EVEN AND NONLABORED ON RA, PT DENIES PAIN. ASSISTED PT TO BEDSIDE COMMODE YELLOW, CLEAR VOID 300ML. PT COLOSTOMY DRY AND INTACT, SMALL AMOUT OF BROWNISH GREEN LOOSE IN BAG, PT DENIES NEEDING ANY HELP WITH HER COLOSTOMY. LEFT HIP SURGICAL ([place]) DRESSING CLEAN, DRY AND INTACT. DURING MEDICATION ADMIN PT HAD NO DIFFICULTIES. PT WAS REPOSITION IN BED FOR COMFORT. LATER RESPONDED TO CALL LIGHT AND ASSISTED PT TO BEDSIDE COMODE YELLOW, CLEAR 350ML ZERO FOUL ODOR. ZERO S/S OF ACUTE DISTRESS NOTED, PT WILL CONTIUE TO BE MONITOR PER 5NR PROTOCOL.
[2020-04-20 08:34] VITALS: BP 114/69
[2020-04-20 08:37] VITALS: BP 114/69
--- NOTE | 2020-04-20 13:32 | NUR ---
Alert and orinetated X 4. Requested pain med from TRIMMER MACHINE but stated she had pain of 0 when assessed, no s/o distress. Tylenol given in preparation of PT. Conversive. Breath sounds clear. Reg HR auscultated. Color pink with brisk capillary refill and palpable peripheral pulses. Voiding yellow urine per bedside commode. Active bowel sounds over soft, rounded abdomen. Up with gait belt, ambulating with walker. Ate lunch without diff. Again requesting pain medication from TRIMMER MACHINE but when assessed stated she had no pain and had no s/o distress. Conversive.
[2020-04-20 19:40] VITALS: BP 124/67
--- NOTE | 2020-04-21 03:42 | NUR ---
assumed care approx 1900 evening 04/20. pt sitting up in bed alert and oriented x4 somewhat forgetful. pt called out for her hs meds and took with water tolerating well. pt appears to be sleeping soundly with hourly rounding checks. bed alarm on and call light in reach. will continue to monitor.
[2020-04-21 08:07] VITALS: BP 148/84
--- NOTE | 2020-04-21 13:42 | NUR ---
ASSUMED CARES AT 0700. PT AWAKE, ALERT AND ORIENTED*4 BUT FORGETFUL. DENIES PAIN AT THIS TIME. VITALS REMAIN STABLE. LEFT HIP INCISION REMAINS DRY AND INTACT, MARIO ARE INTACT, DRESSING CHANGED. COLOSTOMY REMAINS INTACT AND PATENT, SMALL AMOUNT OF BROWN GREENISH JELLY-LIKE STOOL NOTED. PT REPORTS DIFFICULTY WITH URINATION, HAS URGENCY BUT IS UNABLE TO VOID, WILL CONTINUE TO MONITOR. PT UP WITH 1 MIN ASSIST, GB AND WALKER. AMBULATED THE CERDA WITH NURSING AND TOLERATED WELL. Q1H VISUAL CHECKS. CALL LIGHT WITHIN REACH. FALL PRECAUTIONS IN PLACE.
[2020-04-21 19:42] VITALS: BP 130/74
--- NOTE | 2020-04-22 04:00 | NUR ---
ASSUMED CARE APPROX 1900 EVENING 04/21. PT ALERT AND ORIENTED X4 STATING SHE IS HOPING TO BE DCD THIS WEEK. PT ASSIST X1 UP TO BSC TO VOID AND PT WITH SMALL AMT STOOL IN COLOSTOMY BAG. PT REFUSED STOOL SOFTENER. PT APPEARS TO BE SLEEPING SOUNDLY WITH HOURLY ROUNDING CHECKS. BED ALARM ON AND CALL LIGHT IN REACH. WILL CONTINUE TO MONITOR.
[2020-04-22 19:10] VITALS: BP 100/49
--- NOTE | 2020-04-22 19:25 | NUR ---
ASSUMED CARE OF PATIENT AT 0700. ALERT AND ORIENTED X4. REQUESTING MEDICATIONS. LEFT LEG DRESSING INTACT. MARIO DA HERNADEZ. UP WITH ASSIST OF ONE PERSON. USING BEDSIDE COMMODE. PERFORMS OWN OLOSTOMY CARE. DENIES PAIN OR DISCOMFORT.
--- NOTE | 2020-04-23 00:36 | NUR ---
PT ALERT AND ORIENTED X 4. LEFT HIP DRESSING C/D/I. COLOSTOMY INTACT WITH NO STOOL SO FAR TONIGHT. PT DENIES PAIN OR DISCOMFORT. BED ALARM ON FOR SAFETY. PT APPEARS TO BE SLEEPING ON HOURLY ROUNDS.
[2020-04-23 07:45] VITALS: BP 148/66
[2020-04-23] MEDS ORDERED: IRON325 PO (09:42)
[2020-04-23] MEDS ORDERED: ASPIR 8181 MG PO (09:42)
[2020-04-23] MEDS ORDERED: MIRALAX17 GM PO (09:42)
[2020-04-23] MEDS ORDERED: CYCLOBENZAPRINE5 MG PO (09:42)
[2020-04-23] MEDS ORDERED: TYLENOL EXTRA500 MG PO (10:14)
--- NOTE | 2020-04-23 13:06 | NUR ---
team, cont with dc home today
--- NOTE | 2020-04-23 13:41 | NUR ---
PT ALERT AND ORIENTED TIMES FOUR. VSS. PT DENIES PAIN/SOA. PT UP WITH ASSIST OF ONE. PT TOLERATES MEDS AND MEALS. PLANS FOR DISCHARGE TODAY. WILL CONTINUE TO MONITOR.
--- NOTE | 2020-04-23 15:54 | NUR ---
PT DISCHARGING TODAY TO HOME WITH [facility] FAXED DC ORDERS/SUMMARY RECEIVED CONFIRMATION AND THEY WILL NOTIFY PT TIME OF VISITS.
== END 2020-04-23 13:40 | disposition home health service (06) | DRG 535 ==
PROVIDERS: Nurse Practitioner; Nurse Practitioner Family; ADMIT Physical Medicine & Rehabilitation; ATTEND Physical Medicine & Rehabilitation
DX: S72.002A Fracture of unspecified part of neck of left femur, initial encounter for closed fracture (principal); J96.01 Acute respiratory failure with hypoxia; I42.9 Cardiomyopathy, unspecified; I48.20 Chronic atrial fibrillation, unspecified; W18.39XA Other fall on same level, initial encounter; Y93.89 Activity, other specified; Y92.89 Other specified places as the place of occurrence of the external cause; Y99.8 Other external cause status; Z88.1 Allergy status to other antibiotic agents; E03.9 Hypothyroidism, unspecified; Z90.710 Acquired absence of both cervix and uterus; Z98.42 Cataract extraction status, left eye; Z98.41 Cataract extraction status, right eye; D69.6 Thrombocytopenia, unspecified
CPT/HCPCS: 10112